=== PATIENT | female | born 1940 | race African-American/Black ===

== ENCOUNTER 2018-03-15 08:14 | Day surgery (SDC) | END 2018-03-15 14:42 | disposition home or self-care (01) ==

== ENCOUNTER 2018-05-29 05:55 | Inpatient (IN) | payer OTHER ==
--- NOTE | 2018-05-25 21:18 | PREOPHP ---
DATE OF ADMISSION: 05/29/2018 HISTORY OF PRESENT ILLNESS: This is a 78-year-old female, 11, para 9, abortions 2 with 7 misa ing children. The patient has seen me in January 2018 due to heavy bleeding for which she had an I UD that was also lost inside her uterus that was removed with a D and C hysteroscopy in March. At the time of the removal of the IUD and the D and C, an excision of the cervical mass was done that t urned out to be cervical cancer. By pathology, it was LAURA 3 with gland involvement. The patient was adamant about having that removed since she was scared for an invasive LAURA. The cervix was biopsied with Elite, and it seems to be only a noninvasive LAURA 3. The daughter and mother are adamant about having the uterus out since she was also having bleeding at this age. They wanted to protect her fro m possible cancer of the endometrium or the cervix. The patient is with history of hypertension and borderline prediabetes. She was diagnosed with endom etritis and the patient also had a LAURA 3 and the patient is being scheduled for a TAHBSO since there is a family history for cancer. The patient has been on meloxicam, Lasix, hydrochlorothiazide, and e ye drops and she has history of arthritis. She has no history of heart disease except for hypertensi on. No history of heart attacks or any lung problem. She is not diabetic. She has no history of se izures. She has history of glaucoma, arthritis, diabetes, hypertension, and this time, LAURA 3 of cerv ix, rule out invasive. SOCIAL HISTORY: The patient has no history for smoking or drinking. No history of drugs. ALLERGIES: SHE IS NOT ALLERGIC TO ANY MEDICATION. PHYSICAL EXAMINATION: GENERAL APPEARANCE: Good. VITAL SIGNS: Blood pressure 140/90. She is 218 pounds. She is 5 feet and 9 inches. The patient's pulse is 80 and respirations 16. HEAD AND NECK: Normal. BREASTS: Soft with fibrocystic breast. HEART: Normal sinus rhythm. LUNGS: Clear. BACK: Normal. ABDOMEN: Soft, nontender. No masses. SKIN: Negative. PELVIC: External genitalia is normal. Cervix with a normal appearance. Uterus retroverted, flexed, painful mobilization, and there was no active bleeding right now. Adnexa are negative. EXTREMITIES: Normal. DIAGNOSES: Cervical cancer, rule out any invasive; postmenopausal bleeding, obesity, history of endo metritis, hypertension, and is undergoing a hysterectomy with bilateral salpingo-oophorectomy. PLAN: She has been advised of the possible risks and possible complications of the procedure with he r alternatives and options. Written information was provided. She had no more questions and agreed to go ahead with the procedure with full understanding and no more questions. Dictated By: EUNICE BOYD MD [facility] Conf#: [id number] DID#: [id number] CC: EUNICE BOYD MD;*EndCC*
[2018-05-28 15:51] VITALS: BMI 31.9
[~2018-05-29] VITALS: Ht 175.3 cm; Wt 96.3 kg
[2018-05-29] VITALS (24 sets, daily range): BP systolic 101–183; BP diastolic 53–79; PULSE 58–94; RESP 12–20; Ht 175.3 cm; Wt 96.3 kg
[~2018-05-29 05:55] MED LIST: CARV12.598 PO; DICL2.5D11 BOTH EYES; DORZ10DR20 OP; FURO20TA3 PO; HYDR25TA6 PO; LATA2.5D2 BOTH EYES; MELO7.5T39 PO
[2018-05-29] MEDS ORDERED: CARV25TA97 PO (06:55)
--- NOTE | 2018-05-29 07:40 | PREAC ---
Date/Time of Note Date/Time of Note DATE: 05/29/18 TIME: 07:37 Anesthesia Eval and Record Evaluation Time Pre-Procedure Interview DATE: 05/29/18 TIME: 07:37 Age 78 Sex female NPO: 8 hrs Preoperative diagnosis LAURA 3 Planned procedure Total Abdominal Hysterectomy Past Medical History Past Medical History: Includes Cardio: HTN Endo: Diabetes Surgery & Anesthesia Issues No known issue Meds Anticoagulation: No Beta Robb within 24 hr: No Reason Beta Robb not given: Pt. not on B-Robb Reported Medications Carvedilol* (Coreg*) 25 Mg Tablet, 25 MG PO BID, #60 TAB 05/29/18 Diclofenac Sodium* (Diclofenac Oph*) 2.5 Ml Drops, 1 DROP BOTH EYES QID, #1 EA 03/15/18 Dorzolamide HCl (Trusopt) 10 Ml Drops, 1 DRP OP BID, BOTTLE 03/15/18 Latanoprost (Latanoprost) 2.5 Ml Drops, 1 DROP BOTH EYES QHS, #1 BOTTLE 03/15/18 Hydrochlorothiazide (Hydrochlorothiazide) 25 Mg Tablet, 25 MG PO DAILY, #60 TAB 03/15/18 Discontinued Reported Medications Meloxicam (Mobic) 7.5 Mg Tablet, 7.5 MG PO DAILY, #30 TAB 03/15/18 Carvedilol* (Coreg*) 12.5 Mg Tablet, 12.5 MG PO BID, #60 TAB 03/15/18 Furosemide* (Furosemide*) 20 Mg Tablet, 20 MG PO DAILY, #60 TAB 03/15/18 Meds reviewed: Yes Allergies Coded Allergies: No Known Allergy (Unverified , 05/29/18) Allergies Reviewed: Yes Labs/Studies Labs Reviewed: Reviewed by anesthesiologist test: N/A Pre-procedure Exam Last vitals Vital Signs Date Temp Pulse Resp B/P (MAP) Pulse Ox O2 O2 Flow FiO2 Time Delivery Rate 05/29/18 98.0 66 18 116/58 98 Room Air 07:08 (77) Airway: Adequate mouth opening, Adequate thyromental dist Mallampati: Mallampati IV Teeth: Normal Lung: Normal Heart: Normal ASA Physical Status ASA physical status: 3 Emergency: None Planned Anesthetic General/MAC: ETT, A Line, CVP Planned Pain Management Sub-arachniod narcotics Pre-operative Attestations Prior to commencing anesthesia and surgery, the patient was re-evaluated, there was verification of: *The patient's identity *The results of appropriate recent lab work and preoperative vital signs *The above evaluation not changing prior to induction *Anesthetic plan, risk benefits, alternative and complications discussed with patient/family; questions answered; patient/family understands, accepts and wishes to proceed. EASTON METCALF DO May 29, 2018 07:40
[2018-05-29] MEDS ORDERED: ETOMIDATE 20 MG INJ ONE (07:44)
[2018-05-29] MEDS ORDERED: ROCURONIUM 50 MG INJ ONE (07:44)
[2018-05-29] MEDS ORDERED: MIDAZOLAM 1 MG/ML 2 ML INJ ONE (07:44)
[2018-05-29] MEDS ORDERED: LIDOCAINE 1% (MDV) 20 ML INJ ONE (07:45)
[2018-05-29] MEDS ORDERED: morphine SULFATE/PF (10 MG/10 ML) INJ ONE (07:47)
--- NOTE | 2018-05-29 07:47 | HPN ---
Date/Time of Note Date/Time of Note DATE: 05/29/18 TIME: 07:47 Interval H&P Admission Note Pt. seen H&P reviewed: No system changes EUNICE BOYD MD May 29, 2018 07:47
[2018-05-29] MEDS ORDERED: HYDROCODONE/APAP (5/325) TAB PO PRN (08:00)
[2018-05-29] MEDS ORDERED: PHENYLephrine (100 MCG/ML) 5ML SYG ONE ×2 (08:19→10:21)
[2018-05-29] MEDS ORDERED: CEFAZOLIN 1 GM INJ ONE (08:25)
[2018-05-29] MEDS ORDERED: DEXAMETHASONE 4 MG/ML 5 ML INJ ONE (08:35)
[2018-05-29] MEDS ORDERED: ONDANSETRON 4 MG INJ ONE (08:35)
[2018-05-29] MEDS ORDERED: FAMOTIDINE 20 MG INJ ONE (08:35)
--- NOTE | 2018-05-29 10:13 | SIPON ---
Date/Time of Note Date/Time of Note DATE: 05/29/18 TIME: 10:11 Operative Report Preoperative Diagnosis Cervical cancer Rule out invasive Postmenopausal bleeding All fibroid uterus Recent endometritis Obesity Hypertension Postoperative Diagnosis Same Operation/Procedure Performed Total abdominal hysterectomy bilateral salpingo-oophorectomy Surgeon see signature line him assistant DR PYLE Anesthesia: general Estimated blood loss: 10 - 50 ml's Transfusion Required none Specimen Uterus tubes and ovaries Grafts/Implants none Complications none EUNICE BOYD MD May 29, 2018 10:13
[2018-05-29] MEDS ORDERED: EPINEPHrine 100 MCG/10 ML SYG IV ONE (10:21)
[2018-05-29] MEDS ORDERED: ATROPINE 1 MG/10 ML SYRINGE ONE (10:21)
[2018-05-29] MEDS ORDERED: EPHEDrine SULFATE 50 MG/5 ML SYG ONE (10:21)
--- NOTE | 2018-05-29 10:28 | NUR ---
PACU: Received patient in pacu s/p PARK & BSO asleep but arousable, vss, HOB @ flat breathing with ease, abdominal dressing dry & intact & peripad dry, franklin catheter intact & draining, had spinal legs not moving yet, no facial grimacing, d/c A-line per Dr. Johnson, will continue to monitor.
--- NOTE | 2018-05-29 10:32 | PAC ---
Date/Time of Note Date/Time of Note DATE: 05/29/18 TIME: 10:31 Post-Anesthesia Notes Post-Anesthesia Note Last documented vital signs Vital Signs Date Temp Pulse Resp B/P (MAP) Pulse Ox O2 O2 Flow FiO2 Time Delivery Rate 05/29/18 98 65 18 120/65 98 Room Air 1031 Activity: WNL Respiratory function: WNL Cardiovascular function: WNL Mental status: Baseline Pain reasonably controlled: Yes Hydration appropriate: Yes Nausea/Vomiting absent: Yes EASTON METCALF DO May 29, 2018 10:32
[2018-05-29] MEDS ORDERED: ONDANSETRON 4 MG INJ IV PRN (11:00)
[2018-05-29] MEDS ORDERED: HYDROmorphONE 0.5 MG/0.5 ML SYG IV PRN ×2 (11:00)
[2018-05-29] MEDS ORDERED: KETOROLAC 30 MG INJ IV PRN (11:00)
[2018-05-29] MEDS ORDERED: DIPHENHYDRAMINE 50 MG INJ IV PRN (11:00)
[2018-05-29] MEDS ORDERED: NALOXONE (0.4 MG/ML) INJ IV PRN (11:00)
--- NOTE | 2018-05-29 11:13 | OPR ---
DATE OF OPERATION: 05/29/2018 OPERATION PERFORMED: Total abdominal hysterectomy, bilateral salpingo-oophorectomy. PREOPERATIVE DIAGNOSES: Cervical cancer, rule out invasive, postmenopausal bleeding, old fibroid [facility]. Recent endometritis, obesity, hypertension. POSTOPERATIVE DIAGNOSES: Cervical cancer, rule out invasive, postmenopausal bleeding, old fibroid ut erus, recent endometritis, obesity hypertension. SURGEON: Eunice Boyd MD DATABASE ADMINISTRATION PROJECT MANAGER: Dr. Jaimes. ANESTHESIA: Dr. Johnson with general anesthesia and Duramorph. COMPLICATIONS: None. PROCEDURE: The patient was given Duramorph anesthesia and general anesthesia, placed in the supine p osition. The Avalos catheter was placed in the bladder. The abdomen was prepped and draped and a tra nsverse incision 2 cm above the pubic bone was made of about 10 cm in diameter. The abdominal cavity was reached. The lower uterine side of the lower abdomen was approached with exploration, the uteru s was very small and with tiny fibroids. Tubes and ovaries were normal. There was no ascites. Ther e were no other masses. The self-retaining retractor was placed and wet laps were used to retract th e bowel and the uterus was grabbed with a Stefanie clamp and the bipolar instrument was used to burn the round ligaments first and cut them. The incision of the broad ligament was done in pushing the blad deangelo down. Then the ovarian ligament and tube were burned and cut in both sides and the skeletonizati on of both uterine arteries was done. The uterine vessels were held with the bipolar instrument agai n and burned and cut, and the cardinal ligaments and uterosacral ligaments were clamped with straight Tio's, cut and ligated with #1 Vicryl pop off sutures. Hemostasis was good. At this time, the posterior vaginal cuff was entered and the uterus was removed, cutting the cervical vaginal junction and holding both corners of the vagina. There was a remnant of cervix anteriorly t o the vaginal wall that was cut off also and sent for histopathology. The corners of the vagina were sutured with [id number] sutures with #1 Vicryl and these sutures were held. The vagina was ahmet sed with interrupted sutures with #1 Vicryl. Hemostasis was good. The cavity was looked at underwat er and appears to be with good hemostasis. At this time, the left tube and the right tube were burne d at the mesosalpinx and removed separately. Then, the left ovary was also removed separately from t he right ovary by clamping the infundibulopelvic ligament and incising both ovaries out. The cavity was revised again for bleeding controlled, which was good. Both ureters were tracked down with hemos tasis far away from our incisions. The procedure was finished by removing all the instruments and th e lap counts and instrument counts were correct. The peritoneum was closed with continuous 2-0 Vicry l suture. The fascia was closed with 1-0 PDS looped suture, the 2-0 Vicryl was used for the subcutan eous tissue, 3-0 Monocryl subcuticular was used for the skin with Dermabond and Steri-Strips. The pa tient tolerated the procedure well and left the OR awake and stable. Sponge counts and instruments c ounts were correct. Intravenous antibiotics were given for prophylaxis. Blood loss was minimal. Th e urine was clear at the end of the procedure. Dictated By: EUNICE MA/NTS Conf#: [id number] DID#: [id number] CC: EUNICE BOYD MD;*EndCC*
[2018-05-29] MEDS: hydrALAzine 20 MG INJ IV PRN ×2 (11:19→11:25)
[2018-05-29] MEDS ORDERED: LABETALOL HCL 20MG INJ IV PRN (11:30)
[2018-05-29] MEDS: LACTATED RINGER'S 1,000 ML IV SCH ×2 (11:39→14:01)
--- NOTE | 2018-05-29 11:53 | NUR ---
PACU: Transferred patient ti room 412 B via rtroy AAOX4 vss, HOB @ semi reynolds breathing with ease, abdominal dressing dry & intact & peripad dry, franklin catheter intact & draining, had spinal legs moving well, sensation from hip to toes, no facial grimacing, given BP medications, scd placed on both legs. Repost given to ED Bermeo
[2018-05-29] MEDS: HYDROCHLOROTHIAZIDE 25 MG TAB PO SCH (12:17)
[2018-05-29] MEDS: DORZOLAMIDE 2% 10 ML OPH BOTH EYES SCH ×2 (12:19→20:32)
[2018-05-29] MEDS: DICLOFENAC 0.1% 2.5 ML OPH BOTH EYES SCH ×3 (13:00→20:33)
[2018-05-29] MEDS: METOCLOPRAMIDE 10 MG TAB PO SCH ×3 (14:00→23:56)
[2018-05-29] MEDS ORDERED: CEFAZOLIN 1 GM/50 ML (PMX) 50 ML IVPB SCH (16:00)
[2018-05-29] MEDS: LATANOPROST 0.005% 2.5 ML OPH BOTH EYES SCH (20:33)
[2018-05-29] MEDS ORDERED: ZOLPIDEM 5 MG TAB PO PRN (21:00)
[2018-05-29] MEDS: CEFAZOLIN 1 GM/50 ML (PMX) 50 ML IVPB SCH (23:56)
[2018-05-30] MEDS: LACTATED RINGER'S 1,000 ML IV SCH ×4 (00:12→23:58)
[2018-05-30 00:20] VITALS: BP 105/52; PULSE 85; RESP 20
[2018-05-30] MEDS: METOCLOPRAMIDE 10 MG TAB PO SCH ×4 (06:40→23:50)
--- NOTE | 2018-05-30 07:10 | NUR ---
EOSS PATIENT SLEPT OFF AND ON. NO S/S OF DISTRESS NOTED. DRESSING CDI. TOLERATING DIET. NO REPORTS OF PASSING GAS. INCLUDED IN PLAN OF CARE. SCANT BLEEDING NOTED TO MITCH PAD. FC DRAINING FREELY CLEAR YELLOW URINE. IVF RUNNING ORDERED. TOLERATED WELL. ANTIBIOTICS INFUSED ORDERED. CALL LIGHT IN REACH. BED ALARM ACTIVATED.
[2018-05-30 08:05] VITALS: BP 124/58; PULSE 81; RESP 18
[2018-05-30] MEDS: CEFAZOLIN 1 GM/50 ML (PMX) 50 ML IVPB SCH (08:50)
[2018-05-30] MEDS: DORZOLAMIDE 2% 10 ML OPH BOTH EYES SCH ×2 (08:51→21:07)
[2018-05-30] MEDS: DICLOFENAC 0.1% 2.5 ML OPH BOTH EYES SCH ×4 (08:51→21:07)
[2018-05-30] MEDS: HYDROCHLOROTHIAZIDE 25 MG TAB PO SCH (08:52)
--- NOTE | 2018-05-30 10:05 | PN ---
Date/Time of Note Date/Time of Note DATE: 05/30/18 TIME: 10:04 Assessment/Plan Lines/Catheters IV Catheter Type (from Nrsg): Peripheral IV Avalos in Place (from Nrsg): Yes Subjective 24 Hr Interval Summary Day 1 post exploratory laparotomy hysterectomy Doing well Afebrile Vitals are stable Patient is in no pain Encouraged ambulation Incision dry Abdomen distended with gas Full liquids only until passing gases Feeding: advancing diet Pain Control: mild Detailed Summary Eyes: no complaints ENT: no complaints Respiratory: no complaints Cardiovascular: no complaints Gastrointestinal: no complaints Genitourinary: no complaints Musculoskeletal: no complaints Skin: no complaints Neurologic: no complaints Endocrine: no complaints Lymphatic: no complaints Psychological: no complaints, nl mood/affect Immunologic: no complaints Exam/Review of Systems Vital Signs Vitals Vital Signs Date Temp Pulse Resp B/P (MAP) Pulse Ox O2 O2 Flow FiO2 Time Delivery Rate 05/30/18 98.4 81 18 124/58 98 Room Air 08:05 (80) 05/30/18 2.0 00:20 Intake and Output 05/29/18 05/29/18 05/30/18 1515:00 23:00 07:00 IntakeIntake Total 1500 ml 915 ml 300 ml OutputOutput Total 320 ml BalanceBalance 1180 ml 915 ml 300 ml Exam Constitutional: alert, oriented, well developed Psych: no complaints, nl mood/affect Head: normocephalic, atraumatic Eyes: nl conjunctiva, EOMI, nl lids, nl sclera ENMT: nl external ears & nose, nl lips & teeth, nl nasal mucosa & septum, mucosa pink and moist Neck: supple, non-tender Respiratory: clear to auscultation, normal air movement Cardiovascular: regular rate and rhythm, nl pulses Gastrointestinal: soft, nl liver, spleen, non-tender Musculoskeletal: nl extremities to inspection, nl gait and stance Extremities: normal pulses Neurological: THRESHING OPERATOR II-XII intact, nl mental status, nl speech, nl strength Skin: nl turgor, rash or lesions Lymph: nl lymph nodes Results Result Diagram: 05/30/18 0449 05/30/18 0449 EUNICE BOYD MD May 30, 2018 10:05
[2018-05-30] MEDS: HYDROCODONE/APAP (5/325) TAB PO PRN (10:44)
[2018-05-30] MEDS: KETOROLAC 15 MG INJ IV SCH ×3 (10:46→23:00)
[2018-05-30] MEDS: BISACODYL (EC) 5 MG TAB PO PRN (10:56)
[2018-05-30] MEDS ORDERED: ONDANSETRON INJ 6 MG in DEXTROSE 5% 50 ML IVPB PRN (10:59)
[2018-05-30] MEDS ORDERED: DIPHENHYDRAMINE 50 MG CAP PO PRN (10:59)
[2018-05-30 15:37] VITALS: BP 118/60; PULSE 80; RESP 20
--- NOTE | 2018-05-30 18:56 | NUR ---
End of shift note Patient remains alert and oriented x4, resting comfortably in bed. Patient was assisted to ambulate in the hallway and was able to pass gas. Diet was upgraded from clear liquid to a regular diet for dinner, was able to tolerate. Patient was given Dulcolax po prn and no BM at this time. Avalos catheter removed and patient was able to urinate. Patient was given scheduled doses of Toradol IV and 1 tab of [place] po prn, verbalized relief of pain. Patient was educated on IS and was able to do up to 1500.Patient refused to take a shower today. Surgical dressing removed as per Md order and steri-strips noted dry and intact. Patient educated on safety precautions and encouraged to use the call overton for assistance. Bed maintained in the lowest position, bed alarm placed and call overton remains within reach. No family currently at the bedside.
--- NOTE | 2018-05-30 19:24 | NUR ---
Patient requested to be assisted to the restroom and when patient got out of bed, patient was noted to be in the process of having a BM/Loose stools. Patient was assisted to the restroom with the assistance of Julia WARD. Patient was cleaned up by DAMARIS Stiles but requested to stay sitting on the toliet to help with continuing to have her bowel movement. Incoming ED Hewitt witnessed the patient in the restroom and DAMARIS Stiles informed the incoming CARTRIDGE ASSEMBLING MACHINE ADJUSTER regarding the patient status. Patient remains stable at this time.
[2018-05-30 19:30] VITALS: BP 173/72; PULSE 84; RESP 20
[2018-05-30] MEDS ORDERED: ZOLPIDEM 5 MG TAB PO PRN (21:00)
[2018-05-30] MEDS: LATANOPROST 0.005% 2.5 ML OPH BOTH EYES SCH (21:07)
[2018-05-30] MEDS ORDERED: ALBUTEROL/IPRATROPIUM (NEB) 3 ML AMP HHN ONE (22:58)
[2018-05-31] MEDS ORDERED: ALBUTEROL/IPRATROPIUM (NEB) 3 ML AMP HHN PRN
--- NOTE | 2018-05-31 00:09 | CONS ---
Assessment/Plan Assessment/Plan Hospital Course (Demo Recall) This is an 78-year-old female with #1 shortness of breath: Currently back at baseline and not complaining of any respiratory symptoms. Patient is displaying nonlabored breathing. She is satting 97% on room air and she is not tachycardic. She is not complaining of any pleuritic pain. Chest x-ray appears normal. At the current time pulmonary embolism is lower on my differential. Nonetheless given her recent surgical history we will check a venous Doppler ultrasound. Will monitor her vital signs. PRN breathing treatments. If any worsening of symptoms or new symptoms we will reevaluate and consider CT angiogram to rule out PE #2 cervical cancer: Patient is status post total abdominal hysterectomy, bilateral salpingo-oophorectomy. Further management as per OB #3 hypertension: Resume home meds #4 DVT GI prophylaxis: SCDs, no GI prophylaxis indicated Further treatment strategy will be implemented as per the clinical course. Consultation Date/Type/Reason Admit Date/Time May 29, 2018 at 05:55 Type of Consult medicine Reason for Consultation SOB Date/Time of Note DATE: 05/31/18 TIME: 00:07 Hx of Present Illness This is a 78 F POD# 2 s/p PARK - BSO, who reported earlier feeling short of breat h. Patient patient was noted to be feeling short of breath, chest x-ray and stat EKG were ordered. She was ordered PRN breathing treatments as well. Upon my examination patient at the bedside patient appears to be comfortably lying in bed in no acute distress. She reports that her breathing has improved. She denies any chest pain or pleuritic pain. Her oxygen on room air was noted to be 97%. And patient was not noted to be tachycardic. Denies any swelling in her legs. Allergies: NKDA Medications: See MAR Const: As per HPI Eyes : No pain discharge or redness or change in visual acuity ENT: No pain, sore throat, congestion, congestion, dysphagia or discharge Respiratory: As per HPI Cardiovascular: No chest pain, palpitation, PND, or edema GI : no change in appetite, abdominal pain, nausea, vomiting, diarrhea, constipation, or change in the color his stool Genitourinary: No dysuria, hematuria, flank pain , discharge or CVA tenderness Musculoskeletal: No joint pain, back pain, neck pain, restricted range of motion in neck or joints Skin: No rash, bruising or hives Neuro: No headache, dizziness, syncope, seizure, focal weakness Endocrine: No polyuria, polydipsia, temperature intolerance Psych: No hallucination, depression, anxiety or suicidal ideation Past Medical History Hypertension, cervical cancer, glaucoma Home Meds Reported Medications Carvedilol* (Coreg*) 25 Mg Tablet, 25 MG PO BID, #60 TAB 05/29/18 Diclofenac Sodium* (Diclofenac Oph*) 2.5 Ml Drops, 1 DROP BOTH EYES QID, #1 EA 03/15/18 Dorzolamide HCl (Trusopt) 10 Ml Drops, 1 DRP OP BID, BOTTLE 03/15/18 Latanoprost (Latanoprost) 2.5 Ml Drops, 1 DROP BOTH EYES QHS, #1 BOTTLE 03/15/18 Hydrochlorothiazide (Hydrochlorothiazide) 25 Mg Tablet, 25 MG PO DAILY, #60 TAB 03/15/18 Discontinued Reported Medications Meloxicam (Mobic) 7.5 Mg Tablet, 7.5 MG PO DAILY, #30 TAB 03/15/18 Carvedilol* (Coreg*) 12.5 Mg Tablet, 12.5 MG PO BID, #60 TAB 03/15/18 Furosemide* (Furosemide*) 20 Mg Tablet, 20 MG PO DAILY, #60 TAB 03/15/18 Medications Current Medications Lactated Ringer's 1,000 ml @ 125 mls/hr Q8H IV Last administered on 05/30/18at 07:08; Admin Dose 125 MLS/HR; Start 05/29/18 at 07:58 Zolpidem Tartrate (Ambien) 10 mg HS PRN PO SLEEP; Start 05/30/18 at 21:00 Ondansetron HCl 6 mg/Dextrose 53 ml @ 212 mls/hr Q6H PRN IVPB NAUSEA; Start 05/30/18 at 10:59 Metoclopramide HCl (Reglan) 10 mg Q6 PO Last administered on 05/30/18at 17:24; Admin Dose 10 MG; Start 05/29/18 at 12:00 Simethicone (Mylicon) 160 mg Q6 PO Last administered on 05/30/18at 17:24; Admin Dose 160 MG; Start 05/29/18 at 12:00 Bisacodyl (Dulcolax) 10 mg DAILY PRN PO CONSTIPATION Last administered on 05/30/18 10:56; Admin Dose 10 MG; Start 05/29/18 at 08:00 Acetaminophen/ Hydrocodone Bitart ([place]olo (5/325)) 1 tab Q6H PRN PO PAIN LEVEL 4-6 Last administered on 05/30/18 10:44; Admin Dose 1 TAB; Start 05/29/18 at 08:00 Acetaminophen/ Hydrocodone Bitart ([place] (5/325)) 2 tab Q6H PRN PO PAIN LEVEL 7-10; Start 05/29/18 at 08:00 Ketorolac Tromethamine (Toradol) 15 mg Q6H IV Last administered on 05/30/18 17:24; Admin Dose 15 MG; Start 05/30/18 at 11:00; Stop 05/31/18 at 17:01 Diphenhydramine HCl (Benadryl) 50 mg Q6H PRN PO ITCHING; Start 05/30/18 at 10:59 Carvedilol (Coreg) 25 mg BID PO Last administered on 05/30/18 21:07; Admin Dose 25 MG; Start 05/29/18 at 11:30 Diclofenac Sodium (Voltaren 0.1%) 1 drop QID BOTH EYES Last administered on 05/30/18 21:07; Admin Dose 1 DROP; Start 05/29/18 at 09:00 Dorzolamide HCl (Trusopt) 1 drop BID BOTH EYES Last administered on 05/30/18 21:07; Admin Dose 1 DROP; Start 05/29/18 at 11:30 Hydrochlorothiazide (Hydrochlorothiazide) 25 mg DAILY PO Last administered on 05/30/18 08:52; Admin Dose 25 MG; Start 05/29/18 at 11:30 Latanoprost (Xalatan) 1 drop QHS BOTH EYES Last administered on 05/30/18 21:07; Admin Dose 1 DROP; Start 05/29/18 at 21:00 Albuterol/ Ipratropium (Duoneb) 3 ml Q4H RESP THERAPY PRN HHN SHORTNESS OF KORY ATH; Start 05/31/18 at 00:00 Allergies: Coded Allergies: No Known Allergy (Unverified , 05/29/18) Past Surgical History Status post total abdominal hysterectomy, bilateral salpingo-oophorectomy Family History Significant Family History: no pertinent family hx Social History Alcohol Use: none Smoking Status: Never smoker Drug Use: none Exam/Review of Systems Exam Vitals Vital Signs Date Temp Pulse Resp B/P (MAP) Pulse Ox O2 O2 Flow FiO2 Time Delivery Rate 05/30/18 2.0 23:07 05/30/18 74 16 100 Nasal 23:07 Cannula 05/30/18 19:30 Intake and Output 05/30/18 05/30/18 05/31/18 1515:00 23:00 07:00 IntakeIntake Total 2390 ml 1000 ml OutputOutput Total 3400 ml BalanceBalance -1010 ml 1000 ml Exam General: Patient currently lying in bed she does not appear to be in any acute distress HEENT: Atraumatic, normocephalic. The pupils are equal, round and reactive. Ex traocular motor are intact Neck: Supple with full range of motion. No rigidity or meningismus Chest: Nontender Lungs: Clear to auscultation bilaterally no crackles rales or wheezing, nonlabored breathing Heart: Normal S1-S2, Regular rhythm and rate. Abdomen: Deferred, recent history of hysterectomy Extremities: Normal to inspection, no edema no cyanosis Neurologic: Normal mental status, speech normal, cranial nerves II through XII are intact, motor and sensory are intact, no focal weakness Additional Comments EKG: Sinus rhythm at a approximately 81 bpm, no ST or T wave abnormalities concerning for acute ischemia PROCEDURE: Single view chest. CLINICAL INDICATION: Shortness of breath TECHNIQUE: Single view of the chest was obtained COMPARISON: None FINDINGS: There is mild elevation of the left hemidiaphragm. No airspace consolidation or focal infiltrate. There is no evidence of an effusion and there is no pneumothorax. Cardiac silhouette and mediastinal contours are unremarkable. IMPRESSION: Mildly elevated left diaphragm, otherwise no acute findings. RPTAT: [facility] Physician Kayla Date Time Electronically viewed and signed by Physician Kayla on 05/31/2018 02:17 xB/ CC: EUNICE BOYD MD [id number] Results Result Diagram: 05/30/18 0449 05/30/18 0449 Results 24hrs Laboratory Tests Test 05/30/18 04:49 05/30/18 06:41 05/30/18 08:46 05/30/18 17:50 White Blood Count 8.1 Red Blood Count 4.67 Hemoglobin 11.2 L Hematocrit 35.7 L Mean Corpuscular 76.4 L Volume Mean Corpuscular 24.0 L Hemoglobin Mean Corpuscular 31.4 L Hemoglobin Concent Red Cell 14.6 H Distribution Width Platelet Count 141 Mean Platelet 10.5 H Volume Immature 0.500 H Granulocytes % Neutrophils % 83.1 H Lymphocytes % 8.2 L Monocytes % 8.0 Eosinophils % 0.1 Basophils % 0.1 Nucleated Red 0.0 Blood Cells % Immature 0.040 H Granulocytes # Neutrophils # 6.7 Lymphocytes # 0.7 L Monocytes # 0.7 Eosinophils # 0.0 Basophils # 0.0 Nucleated Red 0.0 Blood Cells # Sodium Level 138 Potassium Level 3.7 Chloride Level 98 Carbon Dioxide 32 H Level Anion Gap 8 Blood Urea 17 Nitrogen Creatinine 0.62 Lab Scanned Report REFERENCE LAB Bedside Glucose 132 196 Medications Medication Current Medications Lactated Ringer's 1,000 ml @ 125 mls/hr Q8H IV Last administered on 05/30/18at 07:08; Admin Dose 125 MLS/HR; Start 05/29/18 at 07:58 Zolpidem Tartrate (Ambien) 10 mg HS PRN PO SLEEP; Start 05/30/18 at 21:00 Ondansetron HCl 6 mg/Dextrose 53 ml @ 212 mls/hr Q6H PRN IVPB NAUSEA; Start 05/30/18 at 10:59 Metoclopramide HCl (Reglan) 10 mg Q6 PO Last administered on 05/30/18at 17:24; Admin Dose 10 MG; Start 05/29/18 at 12:00 Simethicone (Mylicon) 160 mg Q6 PO Last administered on 05/30/18at 17:24; Admin Dose 160 MG; Start 05/29/18 at 12:00 Bisacodyl (Dulcolax) 10 mg DAILY PRN PO CONSTIPATION Last administered on 05/30/18at 10:56; Admin Dose 10 MG; Start 05/29/18 at 08:00 Acetaminophen/ Hydrocodone Bitart ([place]olo (5/325)) 1 tab Q6H PRN PO PAIN LEVEL 4-6 Last administered on 05/30/18 10:44; Admin Dose 1 TAB; Start 05/29/18 at 08:00 Acetaminophen/ Hydrocodone Bitart ([place] (5/325)) 2 tab Q6H PRN PO PAIN LEVEL 7-10; Start 05/29/18 at 08:00 Ketorolac Tromethamine (Toradol) 15 mg Q6H IV Last administered on 05/30/18 17:24; Admin Dose 15 MG; Start 05/30/18 at 11:00; Stop 05/31/18 at 17:01 Diphenhydramine HCl (Benadryl) 50 mg Q6H PRN PO ITCHING; Start 05/30/18 at 10:59 Carvedilol (Coreg) 25 mg BID PO Last administered on 05/30/18 21:07; Admin Dose 25 MG; Start 05/29/18 at 11:30 Diclofenac Sodium (Voltaren 0.1%) 1 drop QID BOTH EYES Last administered on 05/30/18 21:07; Admin Dose 1 DROP; Start 05/29/18 at 09:00 Dorzolamide HCl (Trusopt) 1 drop BID BOTH EYES Last administered on 05/30/18 21:07; Admin Dose 1 DROP; Start 05/29/18 at 11:30 Hydrochlorothiazide (Hydrochlorothiazide) 25 mg DAILY PO Last administered on 05/30/18 08:52; Admin Dose 25 MG; Start 05/29/18 at 11:30 Latanoprost (Xalatan) 1 drop QHS BOTH EYES Last administered on 05/30/18 21:07; Admin Dose 1 DROP; Start 05/29/18 at 21:00 Albuterol/ Ipratropium (Duoneb) 3 ml Q4H RESP THERAPY PRN HHN SHORTNESS OF BREATH; Start 05/31/18 at 00:00 MADAI CASILLAS May 31, 2018 00:09
--- NOTE | 2018-05-31 01:42 | NUR ---
REPORTS SHORTNESS OF BREATH AROUND 2129 DR BOYD MADE AWARE OF PATIENT REPORTING FEELING SHORT OF BREATH. VITALS SIGNS RECHECKED AND WERE WNL FROM HER BASELINE. PATIENT WAS ON OXYGEN AT THIS TIME SO O2 SAT TAKEN AFTER O2 REMOVED. NOTED TO HAVE A SATURATION OF 97% on room air. NEW ORDERS FOR EKG, CHEST X RAY AND TO GET HOSPITALIST TO COME AND EVALUATE HER RECEIVED AND CARRIED OUT. DR CASILLAS CAME TO SEE PATIENT. MADE AWARE OF EKG RESULTS. STILL AWAITING CHEST X RAY RESULTS. DR CASILLAS ORDERED FOR BREATHING TREATMENTS PRN. REQUESTED VENOUS DOPPLER TO BE TAKEN OF BILATERAL LOWER EXTREMITIES. COMPLETED. AWAITING RESULTS. AT THIS TIME PATIENT REPORTS FEELING "BETTER". DAUGHTER KARTHIKEYAN KEPT INFORMED OF PATIENT STATUS. PATIENT IN BED AT THIS TIME. NO S/S OF DISTRESS OBSERVED. CALL LIGHT/ROOM PHONE IN REACH. BED ALARM ACTIVATED. WILL CONTINUE TO MONITOR.
[2018-05-31] MEDS: KETOROLAC 15 MG INJ IV SCH ×2 (05:00→13:56)
--- NOTE | 2018-05-31 05:34 | NUR ---
EOSS PATIENT RESTING AT THIS TIME. NO S/S OF DISTRESS NOTED. REPORTS SHORTNESS OF BREATHE IS BETTER. ENCOURAGED TO COUGH AND DEEP BREATHE. DRESSING TO ABDOMEN CDI. VOIDING WELL. CALL LIGHT AND ROOM PHONE IN EASY REACH. BED ALARM ACTIVATED. WILL CONTINUE TO MONITOR.
[2018-05-31] MEDS: METOCLOPRAMIDE 10 MG TAB PO SCH ×3 (06:00→18:55)
[2018-05-31 07:39] VITALS: BP 139/89; PULSE 80; RESP 17
[2018-05-31] MEDS: LACTATED RINGER'S 1,000 ML IV SCH ×3 (07:58→23:58)
[2018-05-31] MEDS: HYDROCHLOROTHIAZIDE 25 MG TAB PO SCH (10:39)
[2018-05-31] MEDS: DICLOFENAC 0.1% 2.5 ML OPH BOTH EYES SCH ×4 (10:40→22:02)
[2018-05-31] MEDS: DORZOLAMIDE 2% 10 ML OPH BOTH EYES SCH ×2 (10:40→22:02)
--- NOTE | 2018-05-31 13:45 | PN ---
Date/Time of Note Date/Time of Note DATE: 05/31/18 TIME: 13:36 Assessment/Plan Lines/Catheters IV Catheter Type (from Nrs): Saline Lock Avalos in Place (from Nrs): Yes Subjective 24 Hr Interval Summary Day 2 post hysterectomy Patient had an episode of shortness of breath last night for which the hospitalist was called in consultation. It seems that everything was okay, it could have been just some mild ileus,she reports bowel gas that was pushing up her lungs. Chest x-ray showed left-sided diaphragm was pushed up. Today she is not short of breath at all ,oxygen at room air is normal. Vital signs are normal passing gases today with mild diarrhea yesterday after laxative. Tolerating regular diet today. Patient is barely walking She states she has incisional pain. Ibuprofen [id number] should be started. Encouraged ambulation. Patient is anemic with no symptoms incision looking good. Abdomen is soft with bowel sounds. No guarding no rebound tenderness Chest is clear DVT Doppler negative. I will start her on Lovenox . Feeding: advancing diet Pain Control: moderate Detailed Summary Eyes: no complaints ENT: no complaints Respiratory: no complaints Cardiovascular: no complaints Gastrointestinal: no complaints Genitourinary: no complaints Musculoskeletal: no complaints Skin: no complaints Neurologic: no complaints Endocrine: no complaints Lymphatic: no complaints Psychological: no complaints, nl mood/affect Immunologic: no complaints Exam/Review of Systems Vital Signs Vitals Vital Signs Date Temp Pulse Resp B/P (MAP) Pulse Ox O2 O2 Flow FiO2 Time Delivery Rate 05/31/18 Nasal 2.0 08:00 Cannula 05/31/18 98.4 80 17 139/89 95 07:39 (106) Intake and Output 05/30/18 05/30/18 05/31/18 1515:00 23:00 07:00 IntakeIntake Total 2390 ml 1000 ml OutputOutput Total 3400 ml BalanceBalance -1010 ml 1000 ml Exam Constitutional: alert, oriented, well developed Psych: no complaints, nl mood/affect Head: normocephalic, atraumatic Eyes: nl conjunctiva, EOMI, nl lids, nl sclera ENMT: nl external ears & nose, nl lips & teeth, nl nasal mucosa & septum, mucosa pink and moist Neck: supple, non-tender Respiratory: clear to auscultation, normal air movement Cardiovascular: regular rate and rhythm, nl pulses Gastrointestinal: soft, nl liver, spleen, non-tender Musculoskeletal: nl extremities to inspection, nl gait and stance Extremities: normal pulses Neurological: RECEPTIONIST II-XII intact, nl mental status, nl speech, nl strength Skin: nl turgor, rash or lesions Lymph: nl lymph nodes Results Result Diagram: 05/31/18 0456 05/30/18 0449 EUNICE BOYD MD May 31, 2018 13:45
[2018-05-31 15:39] VITALS: BP 108/54; PULSE 86; RESP 15
[2018-05-31] MEDS ORDERED: KETOROLAC 15 MG INJ IV SCH (18:00)
[2018-05-31] MEDS ORDERED: IBUPROFEN 400 MG TAB PO SCH (18:00)
[2018-05-31] MEDS: PANTOPRAZOLE (EC) 40 MG TAB PO SCH (18:55)
--- NOTE | 2018-05-31 19:23 | NUR ---
END OF SHIFT NOTE: Pt with no complaints of pain, IV toradol x2 given per MD order, motrin to begin at 0000 06/01. Pt OOB to bathroom with standby assist and walker. AccuChecks done ACHS, bloodsugars WNL. Pt with no complaints of SOB. [facility], hourly rounding maintained.
--- NOTE | 2018-05-31 19:35 | NUR ---
PATIENT STATUS SITTING IN CHAIR EATING DINNER. NO S/S OF DISTRESS NOTED. NO REPORTS OF SHORTNESS OF BREATH. CALL LIGHT/ROOM PHONE IN EASY REACH. WILL CONTINUE TO MONITOR.
[2018-05-31 20:00] VITALS: BP 112/53; PULSE 87; RESP 18
[2018-05-31] MEDS: HYDROCODONE/APAP (5/325) TAB PO PRN (22:01)
[2018-05-31] MEDS: LATANOPROST 0.005% 2.5 ML OPH BOTH EYES SCH (22:02)
[2018-05-31] MEDS: ENOXAPARIN 30 MG/0.3 ML SYG SC SCH (22:05)
[2018-06-01] MEDS: IBUPROFEN 400 MG TAB PO SCH ×3 (00:09→13:17)
[2018-06-01] MEDS: METOCLOPRAMIDE 10 MG TAB PO SCH ×3 (00:10→13:17)
[2018-06-01 03:54] VITALS: BP 109/53; PULSE 81; RESP 18
[2018-06-01] MEDS: PANTOPRAZOLE (EC) 40 MG TAB PO SCH (06:22)
--- NOTE | 2018-06-01 06:30 | NUR ---
EOSS PATIENT RESTED VERY WELL AT THIS TIME. NO S/S OF DISTRESS NOTED. NO REPORTS SHORTNESS OF BREATHE IS BETTER. ENCOURAGED TO COUGH AND DEEP BREATHE. DRESSING TO ABDOMEN CDI. VOIDING WELL. CALL LIGHT AND ROOM PHONE IN EASY REACH. BED ALARM ACTIVATED. WILL CONTINUE TO MONITOR.
[2018-06-01] MEDS: LACTATED RINGER'S 1,000 ML IV SCH (07:58)
[2018-06-01 08:10] VITALS: BP 122/77; PULSE 70; RESP 18
[2018-06-01] MEDS: HYDROCHLOROTHIAZIDE 25 MG TAB PO SCH (09:14)
[2018-06-01] MEDS: DORZOLAMIDE 2% 10 ML OPH BOTH EYES SCH (09:14)
[2018-06-01] MEDS: DICLOFENAC 0.1% 2.5 ML OPH BOTH EYES SCH ×2 (09:14→13:17)
[2018-06-01] MEDS: ENOXAPARIN 30 MG/0.3 ML SYG SC SCH (09:16)
[2018-06-01] MEDS: BISACODYL (EC) 5 MG TAB PO PRN (09:54)
--- NOTE | 2018-06-01 10:42 | CONS ---
Assessment/Plan Assessment/Plan Hospital Course (Demo Recall) SUBJECTIVE: Lying in bed comfortably. No acute distress. Saturating on room air with no respiratory distress. OBJECTIVE: Vital signs-see below PHYSICAL EXAM: Constitutional: Well-developed, adequately built, lying in bed comfortably. Psych: nl mood/affect, no complaints Head: atraumatic, normocephalic Eyes: nl conjunctiva, nl sclera ENMT: mucosa pink and moist, nl external ears & nose Neck: non-tender, supple Respiratory: clear to auscultation, normal air movement Cardiovascular: nl pulses, regular rate and rhythm Gastrointestinal:Abdominal incision intact. non-tender, soft, bowel sounds active in all 4 quadrants. Musculoskeletal/extremities: nl extremities to inspection, motor strength equal bilaterally, no focal deficit. Normal pulses,no cyanosis, no edema. Neurological: Alert oriented 3,nl speech, nl strength Skin: nl turgor ASSESSMENT/PLAN: 78-year-old -[place] female, underwent total abdominal hysterectomy/bilateral salpingo-nephrectomy, hospitalist consultation was called for postoperative respiratory distress. PLAN Most likely, her symptoms could be secondary to possible bowel gas which is now resolved. She is tolerating room air oxygen saturation without any further respiratory distress. Chest x-ray clear. No evidence of DVTs. At this time, no further intervention indicated and patient may benefit from PRN bronchodilators if her symptoms recur. We will sign off and please feel free to call us will be available as needed. Case discussed with Dr. Whelan. Consultation Date/Type/Reason Admit Date/Time May 29, 2018 at 05:55 Initial Consult Date Date/Time of Note DATE: 06/01/18 TIME: 10:41 Exam/Review of Systems Exam Vitals Vital Signs Date Temp Pulse Resp B/P (MAP) Pulse Ox O2 O2 Flow FiO2 Time Delivery Rate 06/01/18 98.6 70 18 122/77 98 Room Air 08:10 (92) 05/31/18 21 17:43 05/31/18 2.0 08:00 Intake and Output 05/31/18 05/31/18 06/01/18 1515:00 23:00 07:00 IntakeIntake Total 600 ml 300 ml 300 ml BalanceBalance 600 ml 300 ml 300 ml Results Result Diagram: 06/01/18 0456 05/30/18 0449 Results 24hrs Laboratory Tests Test 05/31/18 14:03 05/31/18 18:54 06/01/18 04:56 06/01/18 08:27 Bedside Glucose 110 111 96 White Blood Count 5.7 # Red Blood Count 3.95 L Hemoglobin 9.6 L Hematocrit 30.6 L Mean Corpuscular 77.5 L Volume Mean Corpuscular 24.3 L Hemoglobin Mean Corpuscular 31.4 L Hemoglobin Concent Red Cell 14.8 H Distribution Width Platelet Count 116 L Mean Platelet Volume 10.3 Immature 0.200 Granulocytes % Neutrophils % 51.0 Lymphocytes % 33.3 Monocytes % 13.2 H Eosinophils % 2.1 Basophils % 0.2 Nucleated Red Blood 0.0 Cells % Immature 0.010 Granulocytes # Neutrophils # 2.9 Lymphocytes # 1.9 Monocytes # 0.8 Eosinophils # 0.1 Basophils # 0.0 Nucleated Red Blood 0.0 Cells # Medications Medication Current Medications Lactated Ringer's 1,000 ml @ 125 mls/hr Q8H IV Last administered on 05/30/18at 07:08; Admin Dose 125 MLS/HR; Start 05/29/18 at 07:58 Zolpidem Tartrate (Ambien) 10 mg HS PRN PO SLEEP; Start 05/30/18 at 21:00 Ondansetron HCl 6 mg/Dextrose 53 ml @ 212 mls/hr Q6H PRN IVPB NAUSEA; Start 05/30/18 at 10:59 Metoclopramide HCl (Reglan) 10 mg Q6 PO Last administered on 06/01/18at 06:22; Admin Dose 10 MG; Start 05/29/18 at 12:00 Simethicone (Mylicon) 160 mg Q6 PO Last administered on 06/01/18at 06:21; Admin Dose 160 MG; Start 05/29/18 at 12:00 Bisacodyl (Dulcolax) 10 mg DAILY PRN PO CONSTIPATION Last administered on at 09:54; Admin Dose 10 MG; Start 05/29/18 at 08:00 Acetaminophen/ Hydrocodone Bitart ([place] (5/325)) 1 tab Q6H PRN PO PAIN LEVEL 4-6 Last administered on 05/31/18at 22:01; Admin Dose 1 TAB; Start 05/29/18 at 08:00 Acetaminophen/ Hydrocodone Bitart ([place] (5/325)) 2 tab Q6H PRN PO PAIN LEVEL 7-10; Start 05/29/18 at 08:00 Diphenhydramine HCl (Benadryl) 50 mg Q6H PRN PO ITCHING; Start 05/30/18 at 10:59 Carvedilol (Coreg) 25 mg BID PO Last administered on 06/01/18 09:14; Admin Dose 25 MG; Start 05/29/18 at 11:30 Diclofenac Sodium (Voltaren 0.1%) 1 drop QID BOTH EYES Last administered on 06/01/18 09:14; Admin Dose 1 DROP; Start 05/29/18 at 09:00 Dorzolamide HCl (Trusopt) 1 drop BID BOTH EYES Last administered on 06/01/18 09:14; Admin Dose 1 DROP; Start 05/29/18 at 11:30 Hydrochlorothiazide (Hydrochlorothiazide) 25 mg DAILY PO Last administered on 06/01/18 09:14; Admin Dose 25 MG; Start 05/29/18 at 11:30 Latanoprost (Xalatan) 1 drop QHS BOTH EYES Last administered on 05/31/18 22:02; Admin Dose 1 DROP; Start 05/29/18 at 21:00 Albuterol/ Ipratropium (Duoneb) 3 ml Q4H RESP THERAPY PRN HHN SHORTNESS OF BREATH; Start 05/31/18 at 00:00 Enoxaparin Sodium (Lovenox) 30 mg BID SC Last administered on 06/01/18 09:16; Admin Dose 30 MG; Start 05/31/18 at 21:00 Pantoprazole (Protonix Tab) 40 mg BID@06,18 PO Last administered on 06/01/18 06:22; Admin Dose 40 MG; Start 05/31/18 at 18:00 Ibuprofen (Motrin) 400 mg Q6 PO Last administered on 06/01/18 06:22; Admin Dose 400 MG; Start 06/01/18 at 00:00 Ferric Sodium Gluconate Complex 125 mg/Sodium Chloride 100 ml @ 100 mls/hr DAILY@1300 IVPB ; Start 06/01/18 at 13:00; Stop 06/03/18 at 13:59; Status YAMILETH SEGAL V. DOOR TO DOOR SALESPERSON Jun 01, 2018 10:42
[2018-06-01] MEDS ORDERED: SOD FERRIC GLUC COMPLX 125 MG in SOD CHLORIDE 0.9% 100 ML IVPB SCH (13:00)
--- NOTE | 2018-06-01 13:24 | PD.PPDC ---
CHIEF BUILDING INSPECTOR Discharge Instruction Condition [id number] Patient Condition: [id number] Good Diet [id number] Diet: [id number] Resume Regular Diet Activity/Restrictions [id number] Activity: [id number] Normal Activity May Shower [id number] Restrictions: [id number] No Exercising No Lifting No Driving No Sexual Activity Nothing in the Vagina No Ewing No Tampons, douche Wound/Drain Care Instructions [id number] Wound/Drain Care Instructions: Coona0h Wash with soap and water Keep clean and dry Follow-up Follow-up with Physician: Week/Weeks Return to clinic for [id number] FPGA DESIGN ENGINEER Instructions: [id number] Fever greater than 101 Chills Worsening abdominal pain Excessive Vaginal Bleeding More than 2 pads per hour Unable to tolerate diet [id number] Surgical Instructions: Aaeux8s Incisional Drainage Incisional Redness EUNICE BOYD MD Jun 01, 2018 13:24
--- NOTE | 2018-06-01 15:05 | DS ---
Date/Time of Note Date/Time of Note DATE: 06/01/18 TIME: 14:58 Discharge Summary Admission/Discharge Info Admit Date/Time May 29, 2018 at 05:55 Discharge Date/Time June 01, 2018 Discharge Diagnosis Cervical cancer rule out invasive. Hypertension Borderline diabetes Patient Condition: Good Procedures Total abdominal hysterectomy bilateral salpingo-oophorectomy Hx of Present Illness 78 years old female who presented to my office with postmenopausal bleeding, a D&C hysteroscopy was done which was negative but there was a lesion on the cervix that was biopsy and with a diagnosis of cervical cancer and the patient was advised for a hysterectomy to rule out invasive cancer. She had a history of family history of cancer She wanted the uterus and tubes removed out of fear of familiar history. The patient was supposed to get a conization of the cervix but she decided to go ahead for the hysterectomy instead. She is a controlled hypertensive and borderline diabetes controlled with diet. She is active and she was scheduled for [facility] Hospital Course The patient underwent a total abdominal hysterectomy bilateral salpingo- oophorectomy without complications. On the first night she developed some ileus that gave her shortness of breath. Due to her age and hypertension and history of recent surgery in the pelvis immediately the first thing was to rule out pulmonary emboli, The hospitalist was called and and we started her on Lovenox. The patient passed the test that were ordered and the shortness of breath subsided once she had a bowel movement and started passing gases. Incision was clean and healing well. She had no active bleeding She got controlled on her pain with Toradol and then ibuprofen and Tylenol 3. Today she is being sent home with instructions of what to do and not to do to be ambulatory drink lots of liquids and continue with her diet and ambulation to keep herself in good shape she will see me in the office in 1 week or earlier if she had any problems. Signs and symptoms of complications were explained and she understood and agreed to come and see me if she has any problems. She is stable to be discharged by the hospitalist as well Home Meds Reported Medications Carvedilol* (Coreg*) 25 Mg Tablet, 25 MG PO BID, #60 TAB 05/29/18 Diclofenac Sodium* (Diclofenac Oph*) 2.5 Ml Drops, 1 DROP BOTH EYES QID, #1 EA 03/15/18 Dorzolamide HCl (Trusopt) 10 Ml Drops, 1 DRP OP BID, BOTTLE 03/15/18 Latanoprost (Latanoprost) 2.5 Ml Drops, 1 DROP BOTH EYES QHS, #1 BOTTLE 03/15/18 Hydrochlorothiazide (Hydrochlorothiazide) 25 Mg Tablet, 25 MG PO DAILY, #60 TAB 03/15/18 Discontinued Reported Medications Meloxicam (Mobic) 7.5 Mg Tablet, 7.5 MG PO DAILY, #30 TAB 03/15/18 Carvedilol* (Coreg*) 12.5 Mg Tablet, 12.5 MG PO BID, #60 TAB 03/15/18 Furosemide* (Furosemide*) 20 Mg Tablet, 20 MG PO DAILY, #60 TAB 03/15/18 Follow-up Plan 1 week Primary Care Provider Care Physician No Primary Pending Labs Laboratory Tests Test 05/31/18 18:54 06/01/18 04:56 06/01/18 08:27 06/01/18 13:13 Bedside 111 96 100 Glucose mg/dL (70-220) mg/dL (70-220) mg/dL (70-220) White Blood 5.7 Count 10^3/ul (4.8-1 0.8) Red Blood 3.95 Count 10^6/ul (4.20- 5.40) Hemoglobin 9.6 g/dl (12.0-16. 0) Hematocrit 30.6 % (37.0-47.0) Mean 77.5 Corpuscular fl (82.0-101.0 Volume ) Mean 24.3 Corpuscular pg (29.0-33.0) Hemoglobin Mean 31.4 Corpuscular g/dl (32.0-37. Hemoglobin Conc 0) ent Red Cell 14.8 Distribution % (11.5-14.5) Width Platelet Count 116 10^3/UL (140-4 15) Mean Platelet 10.3 Volume fl (7.4-10.4) Immature 0.200 Granulocytes % % (0.001-0.429 ) Neutrophils % 51.0 % (39.0-77.0) Lymphocytes % 33.3 % (15.0-51.0) Monocytes % 13.2 % (0.0-11.0) Eosinophils % 2.1 % (0.0-7.0) Basophils % 0.2 % (0.0-2.0) Nucleated Red 0.0 Blood Cells % /100WBC (0.0-0 .0) Immature 0.010 Granulocytes # 10^3/ul (0.0-0 .031) Neutrophils # 2.9 10^3/ul (1.6-7 .5) Lymphocytes # 1.9 10^3/ul (0.8-2 .9) Monocytes # 0.8 10^3/ul (0.3-0 .9) Eosinophils # 0.1 10^3/ul (0.0-0 .5) Basophils # 0.0 10^3/ul (0.0-0 .1) Nucleated Red 0.0 Blood Cells # 10^3/ul (0.0-0 .0) EUNICE BOYD MD Jun 01, 2018 15:05
--- NOTE | 2018-06-01 15:43 | NUR ---
DISCHARGE NOTE: Pt stable for discharge. Discharge information given to pt and explained to daughter, verbalized understanding. Prescriptions placed in folder. IV removed, tip intact, site asymptomatic. All valuables collected by daughter. Pt taken down to front lobby in wheelchair by volunteer.
--- NOTE | 2018-06-02 13:50 | RADRPT ---
Vent Rate: 84 bpm RR Interval: 0 msec UT Interval: 156 msec QRS Duration: 92 msec QT Interval: 370 msec QTC Interval: 437 msec P-R-T [place]: 71 - 57 - 59 degrees Sinus rhythm with premature atrial complexes Otherwise normal ECG Electronically Signed By: Eliel Davidson [id number]
== END 2018-06-01 15:55 | disposition home or self-care (01) | DRG 741 ==
LOC: REC 05:55 → MS1 11:58
PROVIDERS: ADMIT Obstetrics & Gynecology; ATTEND Obstetrics & Gynecology
PROC: 0UT20ZZ Resection of Bilateral Ovaries, Open Approach (ICD-10-PCS; 2018-05-29)
PROC: 0UT70ZZ Resection of Bilateral Fallopian Tubes, Open Approach (ICD-10-PCS; 2018-05-29)
PROC: 0UT90ZZ Resection of Uterus, Open Approach (ICD-10-PCS; principal; 2018-05-29 07:30)
DX: C53.9 Malignant neoplasm of cervix uteri, unspecified (principal); E66.9 Obesity, unspecified; Z68.31 Body mass index [BMI] 31.0-31.9, adult; I10 Essential (primary) hypertension
CPT/HCPCS: 71045; 80051; 81001; 82565; 82962; 84520; 85025; 86850; 86900; 86901; 87086; 88305; 93005; 93970; 94664; J0171; J0360; J0461; J0690; J1100; J1650; J1885; J2250; J2274; J2370; J2405; J3010; J7120